=== PATIENT | male | born 2000 | race Caucasian/White ===

== ENCOUNTER 2025-01-24 21:37 | Emergency (ER) | payer OTHER, SELFPAY ==
[2025-01-24 21:40] VITALS: BP 130/83
--- NOTE | 2025-01-24 23:54 | ED.GENMED ---
History of Present Illness
General
Chief Complaint: Skin Problem
Source: patient and family
Exam Limitations: none
Time Seen by Provider: 01/24/25 23:24
Nursing documentation reviewed up to this point in time: agreed with
History of Present Illness
History of Present Illness:
Pleasant 24-year-old male presents to the emergency department with what he thinks are hemorrhoids. He states that he has pain near his rectum. He states that he has had some blood. He states that he stay in the ER sheet that he is lying. Denies
fever, chills, nausea or vomiting. Reports no other complaints.
Review of Systems
Review of Systems
Allergies reviewed?: Yes
All Other Systems: ROS reviewed and negative except as documented in HPI and ROS
Constitutional: Reports no symptoms
EENT: Reports no symptoms
Respiratory: Reports no symptoms
Cardiac: Reports no symptoms
ABD/GI: Reports bloody stools (Blood on tissue and on bed); Denies abdominal pain, nausea, vomiting or constipated (Hard stools but passing his stools)
: Reports no symptoms
Musculoskeletal: Reports no symptoms
Skin: Reports no symptoms
Neurological: Reports no symptoms
Endocrine: Reports no symptoms
Hematologic/Lymphatic: Reports no symptoms
Psychiatric: Reports anxiety
Phy Exam
General Physical Exam
General Presentation: well appearing and mild distress (Anxious)
General age: appears stated age
General Skin: warm and dry
General Habitus: normal
General Mental: alert
General Hydration: appears well hydrated
Pulmonary Exam
Pulmonary Exam: no respiratory distress and no cough
Neurological Exam
Neurological Exam: alert and oriented x3
Skin Exam
Skin Exam: normal color, warm/dry and other (On physical exam, performed in the presence of female nursing shows a spontaneously draining pilonidal cyst at the gluteal cleft. It is draining a bloody, serosanguineous fluid. There is no evidence of
surrounding cellulitis. No obvious hemorrhoid perirectally.)
Psychiatric Exam
Psychiatric Exam: anxious
Course
Orders/Labs/Results
Orders:
Orders
01/24/25 23:54
Docusate Sodium [Colace] 100 mg PO NOW STA
Sulfamethox./Trimethoprim Ds [Bactrim Ds 800 mg/160 mg] 1 tablet PO NOW STA
Vital Signs
Initial and Last Documented VS:
Initial Vital Signs
Temp Pulse Resp BP Pulse Ox
98.4 F 79 18 130/83 99
01/24/25 21:40 01/24/25 21:40 01/24/25 21:40 01/24/25 21:40 01/24/25 21:40
Last Documented Vital Signs
Temp Pulse Resp BP Pulse Ox
98.4 F 79 18 130/83 99
01/24/25 21:40 01/24/25 21:40 01/24/25 21:40 01/24/25 21:40 01/24/25 21:40
*Critical Care Note
Total Time (30-74mins, 75-104mins- exclusive of procedures): Not Applicable
ED Attending Note
-
Portions of this chart may have been created with voice recognition software.� Occasional wrong word or��sound alike� substitutions may have occurred due to the inherent limitations of voice recognition software.
Discharge Plan
Departure
Patient Disposition: Home (Routine Discharge)
Date of Disposition: 01/24/25
Time of Disposition: 23:59
Patient with high blood pressure during this ER visit?: Yes
Discharge Problem:
Pilonidal cyst
Instructions: Wound Care (DC), Pilonidal cyst - Discharge instructions
Prescriptions:
New
sulfamethoxazole-trimethoprim [Bactrim DS] 800-160 mg tablet
1 tab PO BID Qty: 20 0RF
docusate sodium [Colace] 100 mg capsule
100 mg PO DAILY Qty: 20 0RF
Referrals:
Justus Saldana MD [Active] -
Neo Licea MD [Family Provider] -
Activity Restrictions/Additional Instructions:
Your prescriptions were sent electronically to the pharmacy that you specified.
It was a pleasure meeting you and taking part in your care. We hope for your continued healing and wellness.
Please read discharge instructions in their entirety. However, they are for general education and may not describe your exact diagnosis at discharge. Information on your ER visit and medical conditions were discussed with you along with appropriate
follow up information...
If indicated, please take your medications as instructed and indicated on discharge paperwork.
Please schedule a follow up appointment as directed. Call to schedule an appointment
Please return to the emergency department with ANY change in, persisting, or worsening of symptoms. If any of your symptoms do not improve, or persist, or become more severe within 6-12 hours, please return to the emergency department for further
care.
Please return to the emergency department if you develop a headache, neck pain/stiffness, fever greater than 100.4F, chest pain, shortness of breath, persistent nausea, vomiting, slurred speech, difficulty walking, numbness/tingling, weakness, signs
of infection or any other symptoms that are worrisome to you.
If you have any questions or concerns please do not hesitate to call the Hospital at or E-mail me directly at [email or web address]
Interventions
Interventions:
*Risk Screen - Suicide Last Done: 01/24/25 21:41
*General Assessment Last Done: 01/24/25 21:41
*Neglect/Abuse Screening Last Done: 01/24/25 21:41
*ED COVID-19 Vaccine History Last Done: 01/24/25 21:41
ED-Skin Assessment Last Done: 01/24/25 23:53
Discharge Date and Time
Print Language: URDU
[2025-01-24] MEDS: COLACE 100 MG PO (23:59)
[2025-01-24] MEDS: BACTRIM DS 800 MG/160 MG 1 TABLET PO (23:59)
[2025-01-25 00:03] VITALS: BP 125/86
== END 2025-01-25 00:05 | disposition home or self-care (01) ==
LOC: EMR 21:37
PROVIDERS: EMERGENCY PHYSICIAN Student in an Organized Health Care Education/Training Program; FAMILY PHYSICIAN Family Medicine
DX: L05.01 Pilonidal cyst with abscess (principal)
CPT/HCPCS: 99283